=== PATIENT | male | born 1980 | race Caucasian/White ===

== ENCOUNTER → 2017-03-11 | Outpatient (CLI) | payer OTHER ==
[~2017-03-11] MED LIST: ALBU18HF2 INH; FLUT12AE16 ORAL INH; FLUT16SP2 EA NOSTRIL; HYDR-4246 PO; LORA10TA44 PO; TAMS-1 PO
--- NOTE | 2017-03-11 15:39 | DI ---
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 There is no pleural effusion or pneumothorax. The heart size, mediastinal contours and pulmonary vascularity are within normal limits. Stable focus of sclerosis in the right humeral head. IMPRESSION: No acute cardiopulmonary disease. No radiographic evidence of pulmonary metastatic disease. .
== END ==
LOC: IMA 15:01
PROVIDERS: ATTEND Family Medicine
DX: C41.9 Malignant neoplasm of bone and articular cartilage, unspecified (principal)

== ENCOUNTER → 2017-04-15 | Outpatient (CLI) | payer OTHER ==
--- NOTE | 2017-04-15 14:34 | DI ---
Indication: ITS.REASON: M25.512 PAIN IN LEFT SHOULDER PROCEDURE: SHOULDER LEFT 3 VIEWS: Encounter: Initial Comparison: None Findings: There is no acute fracture, dislocation or malalignment identified. No lytic or blastic osseous lesions seen. Impression: No acute osseous abnormality. .
== END ==
LOC: IMA 14:06
PROVIDERS: ATTEND Family Medicine
DX: M25.512 Pain in left shoulder (principal)

== ENCOUNTER → 2017-04-21 | Outpatient (CLI) | payer OTHER ==
[~2017-04-21] MED LIST changes: +GADOBUTROL 10mMol/10ml INJECTION IV ONE; +SALINE FLUSH 10ml SYRINGE ONE
--- NOTE | 2017-04-21 10:49 | DI ---
Indication: ITS.REASON: M25.519 SHOULDER JOINT PAIN MRI SHOULDER LEFT W/WO CONTRAS: Comparison: None Technique: T1 and T2-weighted images with additional contrast enhanced images. Findings: Patient fails to show any significant bony tumors or fractures or malalignments. Patient shows just mild intrasubstance signal involving the supraspinatus suggesting some tendinopathy without significant tears or other acute findings. Labrum is intact. Mild degenerative changes seen in the AC joint. And fluid in the subscapular bursa suggesting mild bursitis. No abnormal enhancing lesions identified Impression: 1. No abnormal bony signal to support some sort of neoplastic lesion. 2. Generally changes in the AC joint. 3. Mild intrasubstance signal in the supraspinatus tendon suggesting some tendinopathy without rotator cuff tear. No additional significant derangements identified about the shoulder region. .
--- NOTE | 2017-04-21 10:52 | DI ---
Indication: ITS.REASON: M25.519 SHOULDER JOINT PAIN MRI HUMERUS LEFT W/WO CONTRAST: Comparison: None available Technique: T1 and T2-weighted image sequences in multiple planes with without intravenous contrast administration. Findings: Patient shows no focal bony lesions or abnormal enhancing lesions. No vascular abnormality noted. No focal muscular lesions were seen. Both bony cortex and marrow are unremarkable. Impression: No abnormal bony signal appreciated. No enhancing lesions are noted. No soft tissue abnormality seen. .
== END ==
LOC: IMA 07:10
PROVIDERS: ATTEND Family Medicine
DX: M25.512 Pain in left shoulder (principal); M19.012 Primary osteoarthritis, left shoulder; R93.7 Abnormal findings on diagnostic imaging of other parts of musculoskeletal system
CPT/HCPCS: 73218; 73223; A9585